=== PATIENT | female | born 1940 | race Caucasian/White ===

== ENCOUNTER → 2017-11-09 | Outpatient (CLI) | payer MEDICARE, MEDICAID ==
[~2017-11-09] MED LIST: ASPI-1073 PO; DULO60CA44 PO; LORA-249 PO; METF500T6 PO; OMEP20CA10 PO; POTASSIUM ER PO; SIMV40TA5 PO; TRAM50TA PO
== END | disposition home or self-care (01) ==
LOC: MAMMO 08:54
PROVIDERS: ATTEND Specialist
DX: Z12.31 Encounter for screening mammogram for malignant neoplasm of breast (principal)
CPT/HCPCS: 77067

== ENCOUNTER 2018-03-29 13:58 | Emergency (ER) | payer MEDICARE, MEDICAID ==
[~2018-03-29] VITALS: Ht 157.5 cm; Wt 48.0 kg
[~2018-03-29 13:58] MED LIST changes: +METF-414 PO; -METF500T6 PO
[2018-03-29] MEDS ORDERED: IBUPROFEN 400MG TABLET PO ONE (21:30)
[2018-03-29] MEDS ORDERED: HYDROCODONE/ACETAMINOPHEN 5/325MG TABLET PO ONE (21:30)
[2018-03-29 23:30] VITALS: BP 112/52
== END 2018-03-29 23:40 | disposition home or self-care (01) ==
LOC: ER 14:12
DX: S16.1XXA Strain of muscle, fascia and tendon at neck level, initial encounter (principal); M47.892 Other spondylosis, cervical region; E11.9 Type 2 diabetes mellitus without complications; Z79.84 Long term (current) use of oral hypoglycemic drugs; Z79.82 Long term (current) use of aspirin; Z98.1 Arthrodesis status; Z90.49 Acquired absence of other specified parts of digestive tract; X58.XXXA Exposure to other specified factors, initial encounter; Y93.89 Activity, other specified; Y92.018 Other place in single-family (private) house as the place of occurrence of the external cause
CPT/HCPCS: 72040; 99283

== ENCOUNTER 2018-07-04 05:28 | Inpatient (IN) | payer MEDICARE, MEDICAID ==
[2018-07-04] VITALS (60 sets, daily range): BP systolic 99–161; BP diastolic 35–103
[~2018-07-04] VITALS: Ht 160 cm; Wt 59.4 kg
[2018-07-04] MEDS ORDERED: THROMBIN (BOVINE) 5000 UNITS/VIAL TOP ONE (06:16)
[2018-07-04] MEDS ORDERED: NORMAL SALINE 0.9% 10 ML SYR ONE (06:16)
[2018-07-04] MEDS ORDERED: LIDOCAINE HCL/EPINEPHRINE 1%-EPI 1:100,000 20 ML VIAL ONE (06:17)
[2018-07-04] MEDS ORDERED: BACITRACIN 50,000 UNITS/VIAL ONE (06:17)
[2018-07-04] MEDS ORDERED: SODIUM CHLORIDE 0.9% 1,000 ML IV SCH (06:25)
[2018-07-04] MEDS ORDERED: ROCURONIUM BROMIDE 10MG/ML VIAL 5ML IV ONE (06:41)
[2018-07-04] MEDS ORDERED: PROPOFOL 200MG/20ML VIAL IV ONE (06:41)
[2018-07-04] MEDS ORDERED: MIDAZOLAM HCL 2 MG/2 ML VIAL ONE (06:41)
[2018-07-04] MEDS ORDERED: HYDROMORPHONE HCL/PF 2MG/ML (OR) ONE (06:41)
[2018-07-04] MEDS ORDERED: FENTANYL CITRATE/PF 50MCG/ML 5ML VIAL ONE (06:41)
[2018-07-04] MEDS ORDERED: PHENYLEPHRINE HCL 10 MG/ML 1ML (IV VIAL) IV ONE (06:42)
[2018-07-04 06:51] LABS: BASOPHILS % 0.8 % (0.0-2.0); EOSINOPHILS % 3.8 % (0.0-5.0); HEMATOCRIT. 36.9 % (36.0-48.0); HEMOGLOBIN. 12.4 g/dL (12.0-16.0); LYMPHOCYTES % 44.1 % (20.0-50.0); MEAN CORPUSCULAR HEMOGLOBIN 31.6 pg (28.0-32.0); MEAN CORPUSCULAR VOLUME 93.8 fL (81.0-99.0); MEAN PLATELET VOLUME 8.4 fl (7.4-10.4); MONOCYTES % 7.8 % (2.0-8.0); NEUTROPHILS % 43.5 % (40.0-76.0); PLATELET 211 x1000/uL (130-400); RED BLOOD CELL COUNT 3.93 mill/uL (4.2-5.4)
[2018-07-04] MEDS ORDERED: LIDOCAINE HCL/PF 1% 10 MG/ML 5ML VIAL ONE (07:09)
[2018-07-04 07:11] LABS: CHLORIDE 108 mEq/L (98-107)
[2018-07-04 07:26] LABS: PARTIAL THROMBOPLASTIN TIME 27.4 sec (23.4-31.0); PROTHROMBIN TIME 10.2 sec (9.6-11.0)
[2018-07-04] MEDS ORDERED: CEFAZOLIN SODIUM 1000MG/VIAL ONE (07:32)
[2018-07-04] MEDS ORDERED: ESMOLOL HCL 10MG/ML 10ML VIAL IV ONE (07:44)
[2018-07-04] MEDS ORDERED: DEXAMETHASONE 4MG/ML 1ML VIAL ONE (07:54)
[2018-07-04] MEDS ORDERED: ONDANSETRON HCL 4MG/2ML INJ ONE (08:19)
[2018-07-04] MEDS ORDERED: GABA-531 PO (08:55)
[2018-07-04] MEDS ORDERED: BACL-141 PO (08:55)
[2018-07-04] MEDS ORDERED: TRAM50TA PO (08:55)
[2018-07-04] MEDS ORDERED: MECL-109 PO (08:55)
[2018-07-04] MEDS ORDERED: ONDANSETRON HCL 4MG/2ML INJ IV PRN (09:30)
[2018-07-04] MEDS ORDERED: HYDRALAZINE 20MG/ML VIAL ONE (09:48)
[2018-07-04] MEDS: DEXT 5%/LACTATED RINGERS 1,000 ML IV SCH ×2 (11:00→19:35)
[2018-07-04] MEDS ORDERED: DIPHENHYDRAMINE INJ IV PRN (11:15)
[2018-07-04] MEDS ORDERED: HYDROMORPHONE PCA 10MG/50ML IV PRN (11:15)
[2018-07-04] MEDS ORDERED: NALOXONE INJ IV PRN (11:15)
[2018-07-04] MEDS ORDERED: ONDANSETRON INJ IV PRN (11:15)
[2018-07-04] MEDS: DEXAMETHASONE 4MG/ML 1ML VIAL IV SCH ×3 (12:40→23:10)
[2018-07-04] MEDS: NICARDIPINE 100 MG in SODIUM CHLORIDE 0.9% 60 ML IV PRN (12:40)
[2018-07-04] MEDS: MORPHINE SULFATE 2 MG/ML CPJ (NOT FOR IM USE) IV PRN (13:00)
[2018-07-04] MEDS ORDERED: BISACODYL 5MG TABLET PO PRN (13:15)
[2018-07-04] MEDS ORDERED: IPRATROPIUM/ALBUTEROL 0.5-3(2.5)MG/3ML NEB HHN PRN (13:15)
[2018-07-04] MEDS ORDERED: CEFAZOLIN SODIUM 1000MG/VIAL IV SCH (14:00)
[2018-07-04] MEDS ORDERED: DEXTROSE 50% WATER 50ML SYRINGE IV PRN (14:15)
[2018-07-04] MEDS: CEFAZOLIN 1000MG PREMIX 50 ML IV SCH ×2 (15:35→21:15)
[2018-07-04] MEDS: BLOOD SUGAR DIAGNOSTIC STRIP TEST SCH ×2 (17:14→23:10)
[2018-07-04] MEDS: INSULIN LISPRO 100 UNITS/ML SUBCUT SCH ×2 (17:19→23:17)
[2018-07-05] VITALS (70 sets, daily range): BP systolic 98–146; BP diastolic 35–109
[2018-07-05] MEDS: NICARDIPINE 100 MG in SODIUM CHLORIDE 0.9% 60 ML IV PRN (02:29)
[2018-07-05] MEDS: DEXT 5%/LACTATED RINGERS 1,000 ML IV SCH ×4 (04:02→22:42)
[2018-07-05 05:25] LABS: HEMATOCRIT. 38.8 % (36.0-48.0); HEMOGLOBIN. 13.1 g/dL (12.0-16.0); LYMPHOCYTES % 9.7 % (20.0-50.0); MEAN CORPUSCULAR HEMOGLOBIN 31.4 pg (28.0-32.0); MEAN CORPUSCULAR VOLUME 93.2 fL (81.0-99.0); MEAN PLATELET VOLUME 8.7 fl (7.4-10.4); MONOCYTES % 1.2 % (2.0-8.0); NEUTROPHILS % 89.1 % (40.0-76.0); PLATELET 223 x1000/uL (130-400); RED BLOOD CELL COUNT 4.17 mill/uL (4.2-5.4)
[2018-07-05] MEDS: BLOOD SUGAR DIAGNOSTIC STRIP TEST SCH ×4 (05:28→23:25)
[2018-07-05 05:29] LABS: CHLORIDE 105 mEq/L (98-107)
[2018-07-05] MEDS: CEFAZOLIN 1000MG PREMIX 50 ML IV SCH ×3 (05:32→21:06)
[2018-07-05] MEDS: DEXAMETHASONE 4MG/ML 1ML VIAL IV SCH ×2 (05:32→12:18)
[2018-07-05] MEDS: INSULIN LISPRO 100 UNITS/ML SUBCUT SCH ×4 (05:33→23:32)
[2018-07-05] MEDS: DOCUSATE SODIUM 250MG CAPSULE PO SCH (10:01)
[2018-07-05] MEDS ORDERED: POTASSIUM CHLORIDE 20MEQ TABLET SR PO SCH (10:45)
[2018-07-06] VITALS (25 sets, daily range): BP systolic 108–144; BP diastolic 44–65
[2018-07-06 05:07] LABS: HEMATOCRIT. 36.9 % (36.0-48.0); HEMOGLOBIN. 12.2 g/dL (12.0-16.0); LYMPHOCYTES % 11.3 % (20.0-50.0); MEAN CORPUSCULAR HEMOGLOBIN 30.9 pg (28.0-32.0); MEAN CORPUSCULAR VOLUME 93.4 fL (81.0-99.0); MEAN PLATELET VOLUME 8.4 fl (7.4-10.4); MONOCYTES % 4.7 % (2.0-8.0); PLATELET 196 x1000/uL (130-400); RED BLOOD CELL COUNT 3.95 mill/uL (4.2-5.4)
[2018-07-06 05:14] LABS: CHLORIDE 106 mEq/L (98-107)
[2018-07-06] MEDS: BLOOD SUGAR DIAGNOSTIC STRIP TEST SCH ×3 (05:47→18:51)
[2018-07-06] MEDS: CEFAZOLIN 1000MG PREMIX 50 ML IV SCH ×2 (05:47→16:49)
[2018-07-06] MEDS: INSULIN LISPRO 100 UNITS/ML SUBCUT SCH ×3 (05:48→18:00)
[2018-07-06] MEDS: DEXT 5%/LACTATED RINGERS 1,000 ML IV SCH (08:12)
[2018-07-06] MEDS: MORPHINE SULFATE 2 MG/ML CPJ (NOT FOR IM USE) IV PRN (09:12)
[2018-07-06] MEDS: DOCUSATE SODIUM 250MG CAPSULE PO SCH (10:23)
[2018-07-06] MEDS: HYDROCODONE/ACETAMINOPHEN 5/325MG TABLET PO PRN ×2 (13:23→20:23)
[2018-07-07] VITALS: BP 146/111
[2018-07-07 04:00] VITALS: BP 156/55
[2018-07-07] MEDS: HYDROCODONE/ACETAMINOPHEN 5/325MG TABLET PO PRN ×3 (05:05→16:47)
[2018-07-07] MEDS: BLOOD SUGAR DIAGNOSTIC STRIP TEST SCH ×4 (06:32→21:00)
[2018-07-07 06:48] LABS: BASOPHILS % 0.2 % (0.0-2.0); EOSINOPHILS % 0.4 % (0.0-5.0); HEMATOCRIT. 38.2 % (36.0-48.0); HEMOGLOBIN. 12.6 g/dL (12.0-16.0); LYMPHOCYTES % 36.1 % (20.0-50.0); MEAN CORPUSCULAR HEMOGLOBIN 31.1 pg (28.0-32.0); MEAN PLATELET VOLUME 8.4 fl (7.4-10.4); MONOCYTES % 7.3 % (2.0-8.0); PLATELET 199 x1000/uL (130-400); RED BLOOD CELL COUNT 4.06 mill/uL (4.2-5.4); RED CELL DISTRIBUTION WIDTH 14.3 % (11.6-14.6)
[2018-07-07 07:03] LABS: CHLORIDE 105 mEq/L (98-107)
[2018-07-07] MEDS: INSULIN LISPRO 100 UNITS/ML SUBCUT SCH ×4 (07:50→21:00)
[2018-07-07] MEDS: MORPHINE SULFATE 2 MG/ML CPJ (NOT FOR IM USE) IV PRN (07:55)
[2018-07-07 08:00] VITALS: BP 130/58
[2018-07-07] MEDS: DOCUSATE SODIUM 250MG CAPSULE PO SCH ×2 (08:15→09:00)
[2018-07-07] MEDS ORDERED: POTASSIUM CHLORIDE 20MEQ TABLET SR PO NR (10:00)
[2018-07-07] MEDS: LACTULOSE 20G/30ML UDC PO SCH ×3 (12:13→16:12)
[2018-07-07 12:14] VITALS: BP 132/50
[2018-07-07 15:39] VITALS: BP 141/60
[2018-07-07] MEDS ORDERED: NA PHOS,M-B/NA PHOS,DI-BA ENEMA 118ML PR PRN (16:45)
[2018-07-07] MEDS: DOCUSATE SODIUM 100MG CAPSULE PO SCH (16:45)
[2018-07-07 20:00] VITALS: BP 126/52
[2018-07-07] MEDS: POLYETHYLENE GLYCOL 3350 (17GM) 1 DOSE PACK PO SCH (21:00)
[2018-07-08] VITALS: BP 134/68
[2018-07-08] MEDS: MORPHINE SULFATE 2 MG/ML CPJ (NOT FOR IM USE) IV PRN ×2 (01:55→09:01)
[2018-07-08 04:00] VITALS: BP 138/61
[2018-07-08] MEDS: HYDROCODONE/ACETAMINOPHEN 5/325MG TABLET PO PRN ×3 (06:31→21:38)
[2018-07-08] MEDS: BLOOD SUGAR DIAGNOSTIC STRIP TEST SCH ×4 (06:33→20:45)
[2018-07-08 06:48] LABS: BASOPHILS % 0.3 % (0.0-2.0); EOSINOPHILS % 1.7 % (0.0-5.0); HEMOGLOBIN. 13.8 g/dL (12.0-16.0); LYMPHOCYTES % 26.8 % (20.0-50.0); MEAN CORPUSCULAR HEMOGLOBIN 31.5 pg (28.0-32.0); MEAN CORPUSCULAR VOLUME 93.7 fL (81.0-99.0); MEAN PLATELET VOLUME 8.6 fl (7.4-10.4); MONOCYTES % 6.9 % (2.0-8.0); NEUTROPHILS % 64.3 % (40.0-76.0); PLATELET 218 x1000/uL (130-400); RED BLOOD CELL COUNT 4.38 mill/uL (4.2-5.4); RED CELL DISTRIBUTION WIDTH 14.2 % (11.6-14.6)
[2018-07-08 07:13] LABS: CHLORIDE 106 mEq/L (98-107)
[2018-07-08] MEDS: INSULIN LISPRO 100 UNITS/ML SUBCUT SCH ×4 (07:20→20:44)
[2018-07-08 08:00] VITALS: BP 133/67
[2018-07-08] MEDS: DOCUSATE SODIUM 100MG CAPSULE PO SCH ×2 (09:00→17:00)
[2018-07-08 12:00] VITALS: BP 153/66
[2018-07-08 16:00] VITALS: BP 124/57
[2018-07-08 20:00] VITALS: BP 130/88
[2018-07-08] MEDS: POLYETHYLENE GLYCOL 3350 (17GM) 1 DOSE PACK PO SCH (20:44)
[2018-07-09] VITALS: BP 131/60
[2018-07-09 04:00] VITALS: BP 167/83
[2018-07-09] MEDS: HYDROCODONE/ACETAMINOPHEN 5/325MG TABLET PO PRN (05:47)
[2018-07-09] MEDS: BLOOD SUGAR DIAGNOSTIC STRIP TEST SCH ×4 (06:42→21:43)
[2018-07-09] MEDS: INSULIN LISPRO 100 UNITS/ML SUBCUT SCH ×4 (07:00→21:57)
[2018-07-09 07:36] LABS: BASOPHILS % 0.5 % (0.0-2.0); EOSINOPHILS % 3.4 % (0.0-5.0); HEMATOCRIT. 42.2 % (36.0-48.0); HEMOGLOBIN. 14.1 g/dL (12.0-16.0); LYMPHOCYTES % 38.3 % (20.0-50.0); MEAN CORPUSCULAR HEMOGLOBIN 31.3 pg (28.0-32.0); MEAN CORPUSCULAR VOLUME 93.9 fL (81.0-99.0); MEAN PLATELET VOLUME 9.9 fl (7.4-10.4); MONOCYTES % 7.4 % (2.0-8.0); NEUTROPHILS % 50.4 % (40.0-76.0); PLATELET 227 x1000/uL (130-400); RED CELL DISTRIBUTION WIDTH 14.4 % (11.6-14.6)
[2018-07-09 07:37] LABS: CHLORIDE 107 mEq/L (98-107)
[2018-07-09 08:00] VITALS: BP 133/64
[2018-07-09] MEDS: HYDROCODONE/APAP 7.5/325MG 1 TAB TABLET PO PRN ×3 (08:54→17:33)
[2018-07-09] MEDS: DOCUSATE SODIUM 100MG CAPSULE PO SCH ×2 (09:00→17:34)
[2018-07-09 12:00] VITALS: BP 118/59
[2018-07-09] MEDS ORDERED: LACTULOSE 20G/30ML UDC PO NR ×2 (13:15→14:36)
[2018-07-09 16:00] VITALS: BP 115/54
[2018-07-09 20:00] VITALS: BP 142/73
[2018-07-09] MEDS: MORPHINE SULFATE 4 MG/ML CPJ (NOT FOR IM USE) IV PRN (20:24)
[2018-07-09] MEDS: POLYETHYLENE GLYCOL 3350 (17GM) 1 DOSE PACK PO SCH (21:49)
[2018-07-10] VITALS: BP 126/51
[2018-07-10 04:00] VITALS: BP 124/54
[2018-07-10] MEDS: MORPHINE SULFATE 4 MG/ML CPJ (NOT FOR IM USE) IV PRN ×2 (04:34→14:02)
[2018-07-10] MEDS: HYDROCODONE/APAP 7.5/325MG 1 TAB TABLET PO PRN ×2 (06:57→14:15)
[2018-07-10 06:59] LABS: BASOPHILS % 0.4 % (0.0-2.0); EOSINOPHILS % 2.5 % (0.0-5.0); HEMATOCRIT. 36.8 % (36.0-48.0); HEMOGLOBIN. 12.5 g/dL (12.0-16.0); LYMPHOCYTES % 22.1 % (20.0-50.0); MEAN CORPUSCULAR HEMOGLOBIN 31.9 pg (28.0-32.0); MEAN CORPUSCULAR VOLUME 94.2 fL (81.0-99.0); MEAN PLATELET VOLUME 8.8 fl (7.4-10.4); PLATELET 252 x1000/uL (130-400); RED BLOOD CELL COUNT 3.91 mill/uL (4.2-5.4)
[2018-07-10 07:32] LABS: CHLORIDE 104 mEq/L (98-107)
[2018-07-10] MEDS: INSULIN LISPRO 100 UNITS/ML SUBCUT SCH ×2 (07:50→12:50)
[2018-07-10] MEDS: BLOOD SUGAR DIAGNOSTIC STRIP TEST SCH ×2 (07:53→13:01)
[2018-07-10 08:00] VITALS: BP 96/42
[2018-07-10] MEDS: DOCUSATE SODIUM 100MG CAPSULE PO SCH (08:37)
[2018-07-10 12:00] VITALS: BP 103/58
[2018-07-10 13:11] VITALS: BP 103/58
[2018-07-10 14:15] VITALS: BP 122/68
== END 2018-07-10 16:15 | DRG 471 ==
LOC: OR 05:28 → MICUNO 05:29 → 6EST 07-06 13:15
PROVIDERS: ADMIT Neurological Surgery; ATTEND Internal Medicine
PROC: 0RG2071 Fusion of 2 or more Cervical Vertebral Joints with Autologous Tissue Substitute, Posterior Approach, Posterior Column, Open Approach (ICD-10-PCS; principal; 2018-07-04)
PROC: 00NW0ZZ Release Cervical Spinal Cord, Open Approach (ICD-10-PCS; 2018-07-04)
PROC: BR101ZZ Fluoroscopy of Cervical Spine using Low Osmolar Contrast (ICD-10-PCS; 2018-07-04)
DX: M48.02 Spinal stenosis, cervical region (principal); G82.50 Quadriplegia, unspecified; G99.2 Myelopathy in diseases classified elsewhere; E11.9 Type 2 diabetes mellitus without complications; I10 Essential (primary) hypertension; F32.9 Major depressive disorder, single episode, unspecified; E87.6 Hypokalemia; D72.829 Elevated white blood cell count, unspecified; N83.209 Unspecified ovarian cyst, unspecified side; R13.10 Dysphagia, unspecified; K59.00 Constipation, unspecified; R53.81 Other malaise; Z82.49 Family history of ischemic heart disease and other diseases of the circulatory system; Z83.3 Family history of diabetes mellitus
CPT/HCPCS: 36415; 72040; 72141; 76000; 80048; 82962; 86850; 86900; 92610; 93970; 97110; 97116; 97162; 97166; 97530; 97535; C1713; J0360; J0690; J1100; J1170; J1815; J2250; J2270; J2370; J2405; J2704; J3010; J3490; J7050; J7121; L0172

== ENCOUNTER 2018-07-10 16:15 | Inpatient (IN) | payer MEDICARE, MEDICAID ==
[~2018-07-10] VITALS: Ht 160 cm; Wt 55.3 kg
[~2018-07-10 16:15] MED LIST changes: -ASPI-1073 PO; +BACL-141 PO; -DULO60CA44 PO; +GABA-531 PO; -LORA-249 PO; +MECL-109 PO; -OMEP20CA10 PO; -POTASSIUM ER PO
[2018-07-10 16:30] VITALS: BP 100/40
[2018-07-10] MEDS ORDERED: IPRATROPIUM/ALBUTEROL 0.5-3(2.5)MG/3ML NEB HHN PRN (17:30)
[2018-07-10] MEDS ORDERED: ONDANSETRON HCL 4MG/2ML INJ IV PRN (17:30)
[2018-07-10] MEDS ORDERED: DEXTROSE 50% WATER 50ML SYRINGE IV PRN (17:30)
[2018-07-10] MEDS ORDERED: NA PHOS,M-B/NA PHOS,DI-BA ENEMA 118ML PR PRN (17:30)
[2018-07-10] MEDS ORDERED: BISACODYL 5MG TABLET PO PRN (17:30)
[2018-07-10] MEDS ORDERED: MORPHINE SULFATE 4 MG/ML CPJ (NOT FOR IM USE) IV PRN (17:30)
[2018-07-10 20:00] VITALS: BP 109/47
[2018-07-10] MEDS: POLYETHYLENE GLYCOL 3350 (17GM) 1 DOSE PACK PO SCH (20:20)
[2018-07-10] MEDS: HYDROCODONE/APAP 7.5/325MG 1 TAB TABLET PO PRN (20:21)
[2018-07-10] MEDS: BLOOD SUGAR DIAGNOSTIC STRIP TEST SCH (21:43)
[2018-07-10] MEDS: INSULIN LISPRO 100 UNITS/ML SUBCUT SCH (21:54)
[2018-07-11] MEDS: INSULIN LISPRO 100 UNITS/ML SUBCUT SCH ×4 (06:12→20:53)
[2018-07-11] MEDS: BLOOD SUGAR DIAGNOSTIC STRIP TEST SCH ×4 (06:12→20:53)
[2018-07-11 07:09] LABS: HEMATOCRIT 36.3 % (36.0-48.0); HEMOGLOBIN 12.2 g/dL (12.0-16.0); MEAN CORPUSCULAR HEMOGLOBIN 31.9 pg (28.0-32.0); MEAN CORPUSCULAR VOLUME 94.6 fL (81.0-99.0); PLATELET 260 x1000/uL (130-400); RED BLOOD CELL COUNT 3.84 mill/uL (4.2-5.4)
[2018-07-11 07:48] LABS: CHLORIDE 104 mEq/L (98-107)
[2018-07-11 08:58] VITALS: BP 97/35
[2018-07-11] MEDS: HYDROCODONE/APAP 7.5/325MG 1 TAB TABLET PO PRN ×2 (08:58→13:28)
[2018-07-11] MEDS: DOCUSATE SODIUM 100MG CAPSULE PO SCH ×2 (08:58→17:00)
[2018-07-11] MEDS: OXYCODONE HCL 5MG TABLET PO PRN (17:43)
[2018-07-11 18:07] LABS: CLARITY URINE CLEAR (CLEAR); COLOR URINE YELLOW (YELLOW); KETONES URINE NEGATIVE (NEGATIVE); LEUKOCYTE ESTERASE URINE TRACE (NEGATIVE); NITRITE URINE NEGATIVE (NEGATIVE); OCCULT BLOOD URINE NEGATIVE (NEGATIVE); PROTEIN URINE NEGATIVE (NEGATIVE); SPECIFIC GRAVITY URINE 1.014 (1.005-1.030); UROBILINOGEN URINE 0.2 E.U./dL (0.2-1.0)
[2018-07-11 20:00] VITALS: BP 123/41
[2018-07-11] MEDS: POLYETHYLENE GLYCOL 3350 (17GM) 1 DOSE PACK PO SCH (20:53)
[2018-07-12] MEDS: INSULIN LISPRO 100 UNITS/ML SUBCUT SCH ×4 (06:18→21:00)
[2018-07-12] MEDS: BLOOD SUGAR DIAGNOSTIC STRIP TEST SCH ×4 (06:18→21:47)
[2018-07-12 06:35] LABS: BASOPHILS % 0.6 % (0.0-2.0); EOSINOPHILS % 3.3 % (0.0-5.0); HEMOGLOBIN. 12.6 g/dL (12.0-16.0); LYMPHOCYTES % 29.6 % (20.0-50.0); MEAN CORPUSCULAR VOLUME 94.1 fL (81.0-99.0); MEAN PLATELET VOLUME 7.8 fl (7.4-10.4); NEUTROPHILS % 54.5 % (40.0-76.0); PLATELET 281 x1000/uL (130-400); RED BLOOD CELL COUNT 3.94 mill/uL (4.2-5.4)
[2018-07-12 07:23] LABS: CHLORIDE 104 mEq/L (98-107)
[2018-07-12 07:37] LABS: FOLIC ACID (FOLATE) SERUM 15.9 ng/mL (>5.38)
[2018-07-12 07:43] LABS: PHOSPHORUS 3.9 mg/dL (2.5-4.9); TOTAL IRON BINDING CAPACITY 242 ug/dL (250-450)
[2018-07-12 08:00] VITALS: BP 104/51
[2018-07-12] MEDS: OXYCODONE HCL 5MG TABLET PO PRN ×3 (08:25→16:36)
[2018-07-12] MEDS: DOCUSATE SODIUM 100MG CAPSULE PO SCH ×2 (08:25→16:36)
[2018-07-12] MEDS ORDERED: NA PHOS,M-B/NA PHOS,DI-BA ENEMA 118ML PR NR (12:30)
[2018-07-12] MEDS: LACTULOSE 20G/30ML UDC PO SCH ×2 (16:36→21:47)
[2018-07-12 20:00] VITALS: BP 167/47
[2018-07-12] MEDS: POLYETHYLENE GLYCOL 3350 (17GM) 1 DOSE PACK PO SCH (21:47)
[2018-07-13] MEDS: LACTULOSE 20G/30ML UDC PO SCH
[2018-07-13] MEDS: BLOOD SUGAR DIAGNOSTIC STRIP TEST SCH ×4 (06:39→20:44)
[2018-07-13 08:00] VITALS: BP 121/59
[2018-07-13] MEDS ORDERED: DEXAMETHASONE 4MG/ML 1ML VIAL IV STA (08:38)
[2018-07-13] MEDS: INSULIN LISPRO 100 UNITS/ML SUBCUT SCH ×4 (09:00→21:57)
[2018-07-13] MEDS: OXYCODONE HCL 5MG TABLET PO PRN ×2 (09:24→13:36)
[2018-07-13] MEDS: FERROUS SULFATE 325MG TABLET PO SCH ×2 (09:44→16:47)
[2018-07-13] MEDS: DOCUSATE SODIUM 100MG CAPSULE PO SCH ×2 (09:44→16:47)
[2018-07-13] MEDS ORDERED: DEXAMETHASONE 4MG/ML 1ML VIAL IV SCH (12:00)
[2018-07-13 20:00] VITALS: BP 131/59
[2018-07-13] MEDS: POLYETHYLENE GLYCOL 3350 (17GM) 1 DOSE PACK PO SCH (20:44)
[2018-07-14] MEDS: OXYCODONE HCL 5MG TABLET PO PRN ×4 (04:04→20:22)
[2018-07-14] MEDS: BLOOD SUGAR DIAGNOSTIC STRIP TEST SCH ×4 (05:42→20:21)
[2018-07-14] MEDS: INSULIN LISPRO 100 UNITS/ML SUBCUT SCH ×4 (05:42→20:21)
[2018-07-14 07:08] LABS: BASOPHILS % 0.7 % (0.0-2.0); EOSINOPHILS % 2.6 % (0.0-5.0); HEMATOCRIT. 32.7 % (36.0-48.0); HEMOGLOBIN. 11.4 g/dL (12.0-16.0); LYMPHOCYTES % 33.1 % (20.0-50.0); MEAN CORPUSCULAR HEMOGLOBIN 32.7 pg (28.0-32.0); MEAN PLATELET VOLUME 7.6 fl (7.4-10.4); MONOCYTES % 8.8 % (2.0-8.0); NEUTROPHILS % 54.8 % (40.0-76.0); PLATELET 325 x1000/uL (130-400); RED BLOOD CELL COUNT 3.48 mill/uL (4.2-5.4)
[2018-07-14 07:15] LABS: CHLORIDE 103 mEq/L (98-107)
[2018-07-14 08:00] VITALS: BP 101/48
[2018-07-14 08:02] VITALS: BP 132/74
[2018-07-14] MEDS: FERROUS SULFATE 325MG TABLET PO SCH ×2 (09:05→17:10)
[2018-07-14] MEDS: DOCUSATE SODIUM 100MG CAPSULE PO SCH ×2 (09:05→17:10)
[2018-07-14 20:00] VITALS: BP 113/50
[2018-07-14] MEDS: POLYETHYLENE GLYCOL 3350 (17GM) 1 DOSE PACK PO SCH (20:21)
[2018-07-15] MEDS: OXYCODONE HCL 5MG TABLET PO PRN ×2 (03:16→08:14)
[2018-07-15] MEDS: BLOOD SUGAR DIAGNOSTIC STRIP TEST SCH ×4 (05:35→21:34)
[2018-07-15] MEDS: INSULIN LISPRO 100 UNITS/ML SUBCUT SCH ×4 (05:36→21:34)
[2018-07-15 08:04] VITALS: BP 116/52
[2018-07-15] MEDS: FERROUS SULFATE 325MG TABLET PO SCH ×2 (08:13→17:07)
[2018-07-15] MEDS: DOCUSATE SODIUM 100MG CAPSULE PO SCH ×2 (08:14→17:07)
[2018-07-15 20:00] VITALS: BP 106/44
[2018-07-15] MEDS: POLYETHYLENE GLYCOL 3350 (17GM) 1 DOSE PACK PO SCH ×2 (21:36→22:13)
[2018-07-16 04:12] LABS: 25-HYDROXY VITAMIN D3 23 ng/mL (.)
[2018-07-16] MEDS: BLOOD SUGAR DIAGNOSTIC STRIP TEST SCH ×4 (06:19→21:00)
[2018-07-16] MEDS: OXYCODONE HCL 5MG TABLET PO PRN (06:32)
[2018-07-16] MEDS: INSULIN LISPRO 100 UNITS/ML SUBCUT SCH ×4 (07:07→21:00)
[2018-07-16 07:22] LABS: BASOPHILS % 0.4 % (0.0-2.0); EOSINOPHILS % 2.9 % (0.0-5.0); HEMATOCRIT. 34.5 % (36.0-48.0); HEMOGLOBIN. 11.8 g/dL (12.0-16.0); LYMPHOCYTES % 29.5 % (20.0-50.0); MEAN CORPUSCULAR HEMOGLOBIN 32.4 pg (28.0-32.0); MEAN CORPUSCULAR VOLUME 94.5 fL (81.0-99.0); MEAN PLATELET VOLUME 7.5 fl (7.4-10.4); MONOCYTES % 6.7 % (2.0-8.0); NEUTROPHILS % 60.5 % (40.0-76.0); PLATELET 349 x1000/uL (130-400); RED BLOOD CELL COUNT 3.65 mill/uL (4.2-5.4)
[2018-07-16 08:13] LABS: CHLORIDE 106 mEq/L (98-107)
[2018-07-16] MEDS: FERROUS SULFATE 325MG TABLET PO SCH ×2 (08:26→16:39)
[2018-07-16] MEDS: DOCUSATE SODIUM 100MG CAPSULE PO SCH ×2 (08:26→16:39)
[2018-07-16 08:40] VITALS: BP 117/43
[2018-07-16] MEDS ORDERED: ERGOCALCIFEROL 50000UNITS CAPSULE PO SCH (12:00)
[2018-07-16 20:00] VITALS: BP 128/56
[2018-07-17] MEDS: BLOOD SUGAR DIAGNOSTIC STRIP TEST SCH ×4 (06:30→20:30)
[2018-07-17 08:00] VITALS: BP 89/97
[2018-07-17] MEDS: DOCUSATE SODIUM 100MG CAPSULE PO SCH ×2 (08:11→16:58)
[2018-07-17] MEDS: FERROUS SULFATE 325MG TABLET PO SCH ×2 (08:11→16:58)
[2018-07-17] MEDS: INSULIN LISPRO 100 UNITS/ML SUBCUT SCH ×4 (08:12→20:30)
[2018-07-17] MEDS: OXYCODONE HCL 5MG TABLET PO PRN ×2 (11:21→20:24)
[2018-07-17 20:00] VITALS: BP 126/75
[2018-07-17] MEDS: POLYETHYLENE GLYCOL 3350 (17GM) 1 DOSE PACK PO SCH (20:24)
[2018-07-18] MEDS: OXYCODONE HCL 5MG TABLET PO PRN (06:41)
[2018-07-18] MEDS: BLOOD SUGAR DIAGNOSTIC STRIP TEST SCH ×4 (06:41→20:48)
[2018-07-18] MEDS: INSULIN LISPRO 100 UNITS/ML SUBCUT SCH ×4 (06:41→20:49)
[2018-07-18 07:05] LABS: BASOPHILS % 0.8 % (0.0-2.0); EOSINOPHILS % 2.8 % (0.0-5.0); HEMATOCRIT. 33.8 % (36.0-48.0); HEMOGLOBIN. 11.6 g/dL (12.0-16.0); LYMPHOCYTES % 36.5 % (20.0-50.0); MEAN CORPUSCULAR HEMOGLOBIN 32.4 pg (28.0-32.0); MEAN CORPUSCULAR VOLUME 94.8 fL (81.0-99.0); MEAN PLATELET VOLUME 7.4 fl (7.4-10.4); MONOCYTES % 6.3 % (2.0-8.0); NEUTROPHILS % 53.6 % (40.0-76.0); PLATELET 351 x1000/uL (130-400); RED BLOOD CELL COUNT 3.57 mill/uL (4.2-5.4); RED CELL DISTRIBUTION WIDTH 14.3 % (11.6-14.6)
[2018-07-18 08:26] VITALS: BP 101/47
[2018-07-18 08:26] LABS: CHLORIDE 106 mEq/L (98-107)
[2018-07-18 08:36] LABS: PHOSPHORUS 4.1 mg/dL (2.5-4.9)
[2018-07-18] MEDS: FERROUS SULFATE 325MG TABLET PO SCH ×2 (10:20→17:25)
[2018-07-18] MEDS: DOCUSATE SODIUM 100MG CAPSULE PO SCH ×2 (10:20→17:25)
[2018-07-18 20:00] VITALS: BP 102/38
[2018-07-18] MEDS: POLYETHYLENE GLYCOL 3350 (17GM) 1 DOSE PACK PO SCH (20:48)
[2018-07-19] MEDS: BLOOD SUGAR DIAGNOSTIC STRIP TEST SCH ×2 (06:19→11:15)
[2018-07-19] MEDS: INSULIN LISPRO 100 UNITS/ML SUBCUT SCH ×2 (06:19→12:22)
[2018-07-19 08:12] VITALS: BP 105/50
[2018-07-19] MEDS: DOCUSATE SODIUM 100MG CAPSULE PO SCH (09:07)
[2018-07-19] MEDS: FERROUS SULFATE 325MG TABLET PO SCH (09:07)
[2018-07-19 11:01] VITALS: BP 118/64
== END 2018-07-19 13:16 | disposition home health service (06) | DRG 551 ==
PROVIDERS: ADMIT Physical Medicine & Rehabilitation Spinal Cord Injury Medicine; ATTEND Internal Medicine
DX: M48.02 Spinal stenosis, cervical region (principal); G82.50 Quadriplegia, unspecified; G95.20 Unspecified cord compression; R13.10 Dysphagia, unspecified; R20.0 Anesthesia of skin; F32.9 Major depressive disorder, single episode, unspecified; D72.829 Elevated white blood cell count, unspecified; I10 Essential (primary) hypertension; R74.0 Nonspecific elevation of levels of transaminase and lactic acid dehydrogenase [LDH]; E11.9 Type 2 diabetes mellitus without complications; R53.81 Other malaise; R26.9 Unspecified abnormalities of gait and mobility; E87.6 Hypokalemia; K80.20 Calculus of gallbladder without cholecystitis without obstruction; D63.8 Anemia in other chronic diseases classified elsewhere; E55.9 Vitamin D deficiency, unspecified; D50.9 Iron deficiency anemia, unspecified
CPT/HCPCS: 36415; 76700; 80048; 80076; 82306; 82607; 82728; 82746; 82962; 83036; 83540; 83550; 83735; 84100; 84134; 84443; 85027; 92523; 92610; 93005; 93306; 93970; 97110; 97112; 97116; 97162; 97166; 97530; 97535; J1815